=== PATIENT | male | born 1955 | race Native Hawaiian/Other Pacific Islander ===

== ENCOUNTER 2020-04-18 12:04 | Emergency (ER) | payer OTHER ==
[~2020-04-18] VITALS: Ht 182.9 cm; Wt 77.1 kg
[2020-04-18 12:19] VITALS: TEMP 98.5
[2020-04-18 13:55] VITALS: BP 122/78
== END 2020-04-18 13:57 | disposition home or self-care (01) ==
LOC: ED 12:04
PROC: 2W3QX1Z Immobilization of Right Lower Leg using Splint (ICD-10-PCS; principal; 2020-04-18)
DX: S82.51XA Displaced fracture of medial malleolus of right tibia, initial encounter for closed fracture (principal); S82.61XA Displaced fracture of lateral malleolus of right fibula, initial encounter for closed fracture; W11.XXXA Fall on and from ladder, initial encounter; Y92.89 Other specified places as the place of occurrence of the external cause
CPT/HCPCS: 96372; 99283; J1170; J1885; J2405